=== PATIENT | female | born 1985 | race Caucasian/White ===

== ENCOUNTER 2018-02-24 19:50 | Emergency (ER) | payer OTHER ==
[~2018-02-24] VITALS: Ht 162.6 cm; Wt 61.2 kg
[~2018-02-24 19:50] MED LIST: PRENATAL TABLE1 EAC1 PO
[2018-02-24] MEDS ORDERED: ALPRAZOLAM0.5 MG PO (20:08)
[2018-02-24] MEDS ORDERED: MACROBID 100 M100 MG PO (21:42)
== END 2018-02-24 21:50 | disposition home or self-care (01) ==
LOC: ED 19:50
DX: R30.0 Dysuria (principal); F41.9 Anxiety disorder, unspecified
CPT/HCPCS: 81001; 84703; 87088; 99283